=== PATIENT | male | born 1980 | race African-American/Black ===

== ENCOUNTER 2018-11-20 17:04 | Emergency (ER) | payer MEDICAID ==
[~2018-11-20] VITALS: Ht 180.3 cm; Wt 73.0 kg
[2018-11-20] MEDS ORDERED: IBUP-2029 PO (17:17)
[2018-11-20] MEDS ORDERED: KETOROLAC 60MG/2ML VIAL IM ONE (20:15)
[2018-11-20 20:50] VITALS: BP 134/84
== END 2018-11-20 21:32 | disposition home or self-care (01) ==
LOC: ER 17:04
DX: G62.9 Polyneuropathy, unspecified (principal); M75.41 Impingement syndrome of right shoulder; F17.210 Nicotine dependence, cigarettes, uncomplicated; F12.90 Cannabis use, unspecified, uncomplicated; I10 Essential (primary) hypertension
CPT/HCPCS: 73030; 96372; 99283; J1885; A4565

== ENCOUNTER 2019-01-24 12:33 | Emergency (ER) | payer MEDICAID ==
[~2019-01-24 12:33] MED LIST: IBUP-2029 PO
== END 2019-01-24 14:55 | disposition left against medical advice (07) ==
LOC: ER 12:33
DX: Z53.21 Procedure and treatment not carried out due to patient leaving prior to being seen by health care provider (principal)

== ENCOUNTER 2020-09-04 21:04 | Emergency (ER) | payer MEDICAID ==
[~2020-09-04] VITALS: Ht 180.3 cm; Wt 75.0 kg
[2020-09-04] MEDS ORDERED: TRAMADOL 50MG TABLET PO ONE (22:00)
[2020-09-04 23:15] VITALS: BP 121/77
== END 2020-09-04 23:20 | disposition home or self-care (01) ==
LOC: ER 21:04
DX: S20.211A Contusion of right front wall of thorax, initial encounter (principal); R07.81 Pleurodynia; X58.XXXA Exposure to other specified factors, initial encounter; Y93.89 Activity, other specified; Y92.89 Other specified places as the place of occurrence of the external cause; Y99.8 Other external cause status; I10 Essential (primary) hypertension; F12.10 Cannabis abuse, uncomplicated
CPT/HCPCS: 71045; 99283

== ENCOUNTER 2024-01-16 12:47 | Emergency (ER) | payer BC, MEDICAID ==
[~2024-01-16] VITALS: Ht 177.8 cm; Wt 85.0 kg
[2024-01-16 12:51] VITALS: O2SAT 98
[2024-01-16] MEDS: LEVETIRACETAM 500MG PREMIX 100 ML IV ONE ×2 (13:15)
[2024-01-16 14:10] LABS: BASOPHILS % 0.8 % (0.0-2.0); DIFFERENTIAL COMMENT 0; EOSINOPHILS % 4.4 % (0.0-5.0); HEMATOCRIT. 37.6 % (42.0-52.0); HEMOGLOBIN. 12.4 g/dL (14.0-18.0); LYMPHOCYTES % 20.1 % (20.0-50.0); MEAN CORPUSCULAR HEMOGLOBIN 31.9 pg (28.0-32.0); MEAN CORPUSCULAR VOLUME 96.9 fL (80.0-94.0); MEAN PLATELET VOLUME 8.7 fl (7.4-10.4); MONOCYTES % 8.4 % (2.0-8.0); NEUTROPHILS % 66.3 % (40.0-76.0); PLATELET 292 x1000/uL (130-400); RED BLOOD CELL COUNT 3.88 mill/uL (4.7-6.1); RED CELL DISTRIBUTION WIDTH 12.6 % (11.6-14.6); WHITE BLOOD COUNT 8.5 x1000/uL (4.5-11.0)
[2024-01-16 14:16] LABS: CARBON DIOXIDE 26 mEq/L (21-32); CHLORIDE 108 mEq/L (98-107); POTASSIUM 3.6 mEq/L (3.5-5.1); SODIUM 140 mEq/L (136-145)
[2024-01-16 14:17] LABS: CALCIUM 8.5 mg/dL (8.7-10.4)
[2024-01-16 14:22] LABS: CREATININE 0.9 mg/dL (0.6-1.3); GLUCOSE 93 mg/dL (70-105); UREA NITROGEN BLOOD 7 mg/dL (9-23)
[2024-01-16 14:23] LABS: TROPONIN I HIGH SENSITIVITY < 4 ng/L (3.0-53)
[2024-01-16 14:24] LABS: ALANINE AMINOTRANSFERASE 10 IU/L (10-49); ALBUMIN 4.4 g/dL (3.2-4.8); ASPARTATE AMINOTRANSFERASE 21 IU/L (<34); BILIRUBIN TOTAL 0.4 mg/dL (0.1-1.0); PROTEIN TOTAL 7.1 g/dL (6.0-8.3)
[2024-01-16] MEDS: ACETAMINOPHEN 325MG TABLET PO ONE (15:36)
[2024-01-16 15:58] VITALS: TEMP 99.2
[2024-01-16 16:34] VITALS: BP 145/66; PULSE 85; RESP 18
== END 2024-01-16 16:46 | disposition left against medical advice (07) ==
LOC: ER 12:47 → CANBEDREQ 16:39 → ER 16:46
DX: R55 Syncope and collapse (principal); R56.9 Unspecified convulsions; I10 Essential (primary) hypertension
CPT/HCPCS: 99285; 96365; 70450; 71045; 96366; 80053; 83605; 85025; 84484; 36415; 93005; J1953